=== PATIENT | male | born 1955 | race Caucasian/White ===

== ENCOUNTER 2022-12-25 20:01 | Emergency (ER) | payer MEDICARE, OTHER ==
[2022-12-25] MEDS ORDERED: Lidocaine 2% 20 ml MDV ONE (20:22)
[2022-12-25] MEDS ORDERED: Cephalexin 500 MG CAP ONE (20:42)
== END 2022-12-25 21:12 | disposition home or self-care (01) ==
LOC: MADERS 20:01
DX: S61.012A Laceration without foreign body of left thumb without damage to nail, initial encounter (principal); I10 Essential (primary) hypertension; F17.290 Nicotine dependence, other tobacco product, uncomplicated; W26.8XXA Contact with other sharp object(s), not elsewhere classified, initial encounter
CPT/HCPCS: 12001